=== PATIENT | female | born 1965 | race Caucasian/White ===

== ENCOUNTER 2020-10-25 20:15 | Inpatient (IN) ==
[2020-10-25 21:43] LABS: ABS Basophils 0.1 10^3/ul (0-0.2); ABS Eosinophils 0.1 10^3/ul (0-0.6); ABS Lymphocytes 2.4 10^3/ul (1.0-4.8); ABS Monocytes 0.4 10^3/ul (0-0.8); ABS Neutrophils 3.7 10^3/ul (1.5-7.7); Hematocrit 38 % (35-47); Hemoglobin 13.3 g/dL (12.0-16.0); Lymphocyte % 35.8 %; Mean Corpuscular HGB Conc 35 g/dL (31-36); Mean Corpuscular Hemoglobin 32 pg (27-31); Mean Corpuscular Volume 93 fL (80-97); Mean Platelet Volume 8.1 fL (7.4-10.4); Platelet Count 214 10^3/uL (150-450); Red Blood Count 4.13 10^6 /uL (3.70-4.87); Red Cell Distribution Width 14 % (10-15); White Blood Count 6.7 10^3/uL (3.5-10.8)
[2020-10-25 21:52] LABS: Activated Partial Thrombo Time 25.9 seconds (26.0-38.0); INR 1.11 (0.82-1.09)
[2020-10-25 22:00] LABS: ALT 23 U/L (7-52); AST 19 U/L (13-39); Albumin/Globulin Ratio 1.4 (1-3); Alkaline Phosphatase 50 U/L (34-104); Anion Gap 8 mmol/L (2-11); Blood Urea Nitrogen 11 mg/dL (6-24); CO2 Carbon Dioxide 29 mmol/L (22-32); Calcium 9.1 mg/dL (8.6-10.3); Chloride 98 mmol/L (101-111); EGFR African American 105.1 (>60); EGFR Non-African American 86.9 (>60); Globulin 2.8 g/dL (2-4); Glucose 93 mg/dL (70-100); Magnesium 1.7 mg/dL (1.9-2.7); Potassium 3.7 mmol/L (3.5-5.0); Sodium 135 mmol/L (135-145); Total Protein 6.8 g/dL (6.4-8.9)
[2020-10-25 22:12] LABS: Troponin I 0.26 ng/mL (<0.03)
[2020-10-25] MEDS ORDERED: Nitro 2% OINT (Nitroglycerin) 1 INCH/PAK TOPICAL ONE (23:16)
[2020-10-25] MEDS ORDERED: Morphine 2 MG/ML SYRINGE IV ONE (23:16)
[2020-10-25] MEDS ORDERED: Al Hydrox/Mg Hydrox/Simet LIQ 30 ML UDC PO ONE (23:16)
[2020-10-25] MEDS ORDERED: Heparin DRIP 25,000 UNITS BAG 25,000 UNITS/500 ML BAG IV SCH (23:30)
[2020-10-25] MEDS ORDERED: Magnesium Sulfate 2 gm BAG 2 GM/50 ML BAG IVPB ONE (23:34)
[2020-10-25] MEDS ORDERED: Heparin 5000 UNITS/ML 1 mL VIAL IV SCH (23:45)
[2020-10-26 00:21] LABS: Troponin I 0.33 ng/mL (<0.03)
[2020-10-26] MEDS ORDERED: Iohexol 350 (CONTRAST) 500 ML MDV IV ONE (00:38)
[2020-10-26] MEDS ORDERED: Heparin DRIP 25,000 UNITS BAG 25,000 UNITS/500 ML BAG IV SCH (00:45)
[2020-10-26] MEDS: Heparin 5000 UNITS/ML 1 mL VIAL IV SCH ×2 (00:45→08:32)
[2020-10-26] MEDS: KCL 10 MEQ/50 ML IVPREMIX 10 MEQ/50 ML BAG IV SCH ×2 (01:32→02:54)
[2020-10-26] MEDS ORDERED: Albuterol HFA INHALER 8 gm MDI INH PRN (01:33)
[2020-10-26 05:34] LABS: ABS Basophils 0.1 10^3/ul (0-0.2); ABS Eosinophils 0.1 10^3/ul (0-0.6); ABS Lymphocytes 2.4 10^3/ul (1.0-4.8); ABS Monocytes 0.3 10^3/ul (0-0.8); ABS Neutrophils 2.7 10^3/ul (1.5-7.7); Eosinophil % 2.3 %; Hematocrit 38 % (35-47); Lymphocyte % 43.2 %; Mean Corpuscular HGB Conc 34 g/dL (31-36); Mean Corpuscular Hemoglobin 32 pg (27-31); Mean Corpuscular Volume 94 fL (80-97); Mean Platelet Volume 7.6 fL (7.4-10.4); Platelet Count 208 10^3/uL (150-450); Red Blood Count 4.08 10^6 /uL (3.70-4.87); Red Cell Distribution Width 14 % (10-15); White Blood Count 5.6 10^3/uL (3.5-10.8)
[2020-10-26 05:50] LABS: Anion Gap 7 mmol/L (2-11); Blood Urea Nitrogen 10 mg/dL (6-24); CO2 Carbon Dioxide 28 mmol/L (22-32); Calcium 9.1 mg/dL (8.6-10.3); Chloride 98 mmol/L (101-111); Cholesterol 188 mg/dL; EGFR African American 108.7 (>60); EGFR Non-African American 89.8 (>60); Glucose 114 mg/dL (70-100); LDL Cholesterol 97 mg/dL; Potassium 3.9 mmol/L (3.5-5.0); Sodium 133 mmol/L (135-145); Triglycerides 224 mg/dL
[2020-10-26] MEDS ORDERED: Ondansetron 4 mg VIAL 2 MG/ML 2 ml VIAL IV ONE (06:17)
[2020-10-26] MEDS ORDERED: Morphine 2 MG/ML SYRINGE IV PRN (06:17)
[2020-10-26] MEDS ORDERED: Ondansetron 4 mg VIAL 2 MG/ML 2 ml VIAL ONE (06:18)
[2020-10-26] MEDS ORDERED: Morphine 2 MG/ML SYRINGE ONE (06:19)
[2020-10-26 06:50] LABS: Magnesium 2.4 mg/dL (1.9-2.7)
[2020-10-26] MEDS ORDERED: Nitro 2% OINT (Nitroglycerin) 1 INCH/PAK TOPICAL SCH (08:00)
[2020-10-26] MEDS ORDERED: Perflutren Lipid Microsphere 3 ML VIAL ONE (08:25)
[2020-10-26 08:30] LABS: Creatine Kinase 143 U/L (10-223)
[2020-10-26 08:31] LABS: Creatine Kinase 147 U/L (10-223)
[2020-10-26 08:36] LABS: CKMB ng/mL 3.6 ng/mL (0.6-6.3)
[2020-10-26 08:37] LABS: CKMB ng/mL 3.7 ng/mL (0.6-6.3)
[2020-10-26] MEDS ORDERED: NS 0.9% 1000 ml BAG 1,000 ML IV SCH ×2 (08:45→17:15)
[2020-10-26] MEDS: Mometasone/Formoter 200/5 MDI INH SCH ×2 (11:36→20:11)
[2020-10-26] MEDS ORDERED: nitroGLYCERIN DRIP 25,000 MCG/250 ML BTL IV SCH (12:00)
[2020-10-26] MEDS ORDERED: Prochlorperazine 5 mg/ml 2 ml VIAL (10 mg) IV PRN (13:27)
[2020-10-26] MEDS ORDERED: Nitro Patch/OINT Remove PATCH PATCH OFF SCH (14:00)
[2020-10-26] MEDS ORDERED: Heparin 1,000 UNIT/ML 10 ml (10,000 UNITS) CATHLAB/DIALYSIS ONE ×2 (14:55→16:10)
[2020-10-26] MEDS ORDERED: VERAPAMIL 2.5 MG/ML 2 ML VIAL ** 5 mg/2 ml ONE ×2 (15:06→16:10)
[2020-10-26] MEDS ORDERED: fentaNYL 100 mcg/2 ml 50 MCG/ML VIAL ONE (15:43)
[2020-10-26] MEDS ORDERED: Midazolam 5 mg/5 ml VIAL 1 mg/ml 5 ml VIAL (5 mg) ONE (15:43)
[2020-10-26] MEDS ORDERED: Iohexol 350 (CONTRAST) 200 ML MDV IV ONE (15:44)
[2020-10-26] MEDS ORDERED: Lidocaine 1% VIAL 10 MG/ML VIAL ONE (15:44)
[2020-10-26] MEDS ORDERED: Heparin 2 UNITS/ML 1000 mls 2,000 ML IV ONE (15:44)
[2020-10-26] MEDS ORDERED: nitroGLYCERIN DRIP 25,000 MCG/250 ML BTL ONE (16:10)
[2020-10-26] MEDS ORDERED: Bivalirudin 250 MG VIAL ONE (16:29)
[2020-10-27] MEDS: Metoprolol Tartrate 5 mg VIAL 5 ml VIAL (1 mg/ml) IV PRN ×2 (01:06→09:40)
[2020-10-27] MEDS ORDERED: LORazepam 2 mg VIAL 1 ml IV PUSH ONE (02:03)
[2020-10-27] MEDS ORDERED: Lorazepam PYXIS KEY PRN (02:03)
[2020-10-27 05:05] LABS: ABS Basophils 0.1 10^3/ul (0-0.2); ABS Eosinophils 0.1 10^3/ul (0-0.6); ABS Lymphocytes 1.6 10^3/ul (1.0-4.8); ABS Monocytes 0.4 10^3/ul (0-0.8); ABS Neutrophils 5.2 10^3/ul (1.5-7.7); Eosinophil % 1.2 %; Hematocrit 38 % (35-47); Hemoglobin 13.3 g/dL (12.0-16.0); Mean Corpuscular HGB Conc 35 g/dL (31-36); Mean Corpuscular Hemoglobin 33 pg (27-31); Mean Corpuscular Volume 94 fL (80-97); Mean Platelet Volume 7.9 fL (7.4-10.4); Nucleated Red Blood Cells % 0.1; Platelet Count 223 10^3/uL (150-450); Red Blood Count 4.08 10^6 /uL (3.70-4.87); Red Cell Distribution Width 14 % (10-15); White Blood Count 7.4 10^3/uL (3.5-10.8)
[2020-10-27 05:26] LABS: Blood Urea Nitrogen 8 mg/dL (6-24); CO2 Carbon Dioxide 28 mmol/L (22-32); Calcium 9.5 mg/dL (8.6-10.3); Chloride 99 mmol/L (101-111); EGFR African American 112.5 (>60); Glucose 119 mg/dL (70-100); Sodium 133 mmol/L (135-145)
[2020-10-27 05:30] LABS: Anion Gap 6 mmol/L (2-11)
[2020-10-27] MEDS: Mometasone/Formoter 200/5 MDI INH SCH (07:50)
[2020-10-27 11:55] LABS: Troponin I 0.18 ng/mL (<0.03)
[2020-10-27] MEDS ORDERED: Nicotine Lozenge mini 2 MG LOZNG.MINI MT PRN (12:37)
[2020-10-27 14:33] VITALS: BP 166/97
== END 2020-10-27 16:50 | disposition home or self-care (01) | DRG 174 ==
LOC: ED 20:15 → MEDTELE 10-26 00:10 → ICU 10-26 00:58
PROVIDERS: ADMIT Pediatrics; ATTEND Surgery Surgical Critical Care